=== PATIENT | female | born 1960 ===

== ENCOUNTER 2018-11-28 14:59 | Outpatient (CLI) | payer OTHER | END 2018-11-28 15:02 | disposition home or self-care (01) | LOC: MAMO-SONO 14:59 | DX: N60.11 Diffuse cystic mastopathy of right breast (principal); N60.12 Diffuse cystic mastopathy of left breast; N63.42 Unspecified lump in left breast, subareolar ==

== ENCOUNTER 2018-11-29 10:56 | Outpatient (CLI) | payer OTHER | END 2018-11-29 11:03 | disposition home or self-care (01) | LOC: SONOGRAMA 10:56 | DX: N60.11 Diffuse cystic mastopathy of right breast (principal); N60.12 Diffuse cystic mastopathy of left breast; N63.42 Unspecified lump in left breast, subareolar ==

== ENCOUNTER 2018-12-20 08:02 | Day surgery (SDC) | payer OTHER ==
[~2018-12-20 08:02] MED LIST: ALLEGRA-D 12 H1 EACH PO; FEMARA2.5 MG PO
[2018-12-20] MEDS ORDERED: PERCOCET 5-3251 EACH PO (13:57)
== END 2018-12-20 15:55 | disposition home or self-care (01) ==
LOC: CIR.AMB 08:02
DX: C50.412 Malignant neoplasm of upper-outer quadrant of left female breast (principal)
CPT/HCPCS: 36561; C1751

== ENCOUNTER 2019-09-12 04:59 | Inpatient (IN) | payer OTHER ==
[~2019-09-12 04:59] MED LIST changes: +PERCOCET 5-3251 EACH PO
== END 2019-09-13 12:14 | disposition home or self-care (01) | DRG 583 ==
LOC: CIR.AMB 04:59 → O/R 17:25 → SURG 18:14
PROVIDERS: ADMIT Surgery
PROC: 0HTU0ZZ Resection of Left Breast, Open Approach (ICD-10-PCS; principal; 2019-09-12 09:00)
DX: C50.412 Malignant neoplasm of upper-outer quadrant of left female breast (principal)

== ENCOUNTER 2019-10-10 11:59 | Outpatient (CLI) | payer OTHER | END 2019-10-10 12:28 | disposition home or self-care (01) | LOC: MAMO-SONO 11:59 | DX: N60.11 Diffuse cystic mastopathy of right breast (principal); N60.12 Diffuse cystic mastopathy of left breast; C50.812 Malignant neoplasm of overlapping sites of left female breast ==